=== PATIENT | female | born 1985 | race Caucasian/White ===

== ENCOUNTER 2017-03-31 10:39 | Outpatient (CLI) | payer OTHER ==
[~2017-03-31 10:39] MED LIST: OXYCODONE/ACETA1 TA1 PO; PRENATAL1 TAB PO
--- NOTE | 2017-03-31 13:19 | DIAGNOSTIC IMAGING REPORT ---
PROCEDURE: MG BILATERAL DIAGNOSTIC W/CAD INDICATION: Palpable area upper outer right breast. Family history breast carcinoma (mother a young age). TECHNIQUE: CC and MLO digital views of each breast with true-lateral digital view of the right breast. In addition, spot compression CC and MLO views were obtained of the upper outer right breast (region of clinical concern). Finally, high-resolution right breast ultrasound was performed (18 mHz). COMPARISON: FINDINGS: MAMMOGRAM: Computer-aided detection applied. Dense parenchymal pattern. No evidence of mass or suspicious calcification. BREAST ULTRASOUND: There is a 1.1 x 0.9 x 0.5 cm well circumscribed hypoechoic nodule in the upper outer right breast, consistent with a benign fibroadenoma. IMPRESSION: 1. There is a 1 x 1 by 0.9 x 0.5 cm ovoid nodule in the upper outer right breast consistent with a benign fibroadenoma. While there is no evidence of underlying abnormality, early follow-up right breast ultrasound in 6 months is recommended to confirm stability. 2. Findings discussed with the patient and called to Dr. Crowell. RESULT CODE: 3- Probably benign findings - initial short-interval follow-up suggested. A. A negative report should not delay biopsy if a dominant or clinically suspicious mass is present. 10-15% of cancers are not identified by x-ray. B. A negative report may reinforce clinical impression. C. Adenosis and dense breasts may obscure an underlying neoplasm. D. False positive reports average 6-10%. E.. A yearly screening mammogram is recommended. A reminder letter will be scheduled.
== END 2017-03-31 23:00 | disposition home or self-care (01) ==
LOC: MAM SRH 10:39
DX: N63 Unspecified lump in breast (principal); Z80.3 Family history of malignant neoplasm of breast